=== PATIENT | male | born 1980 | race Caucasian/White ===

== ENCOUNTER 2017-12-28 16:43 | Emergency (ER) | payer OTHER, BC ==
[~2017-12-28] VITALS: Ht 170.2 cm; Wt 68.8 kg
[~2017-12-28 16:43] MED LIST: ADVAIR 100-501 EACH; ADVAIR 100/501 DISK IH; ALBUTEROL17 GM IH; Benadryl PO; Medrol Dosepak PO; SPIRIVA1 INHALATI IH; Vicodin,Lortab 5/500 PO; Zantac PO; predniSONE PO
[2017-12-28] MEDS ORDERED: MOTRIN600 MG PO (18:20)
[2017-12-28 18:32] VITALS: BP 131/89
== END 2017-12-28 18:34 | disposition home or self-care (01) ==
LOC: EME 16:43
DX: S39.011A Strain of muscle, fascia and tendon of abdomen, initial encounter (principal); X50.0XXA Overexertion from strenuous movement or load, initial encounter; Y99.0 Civilian activity done for income or pay; N43.3 Hydrocele, unspecified; K21.9 Gastro-esophageal reflux disease without esophagitis; J45.909 Unspecified asthma, uncomplicated; Z87.891 Personal history of nicotine dependence; Z91.041 Radiographic dye allergy status
CPT/HCPCS: 76870; 99281; 99284